=== PATIENT | male | born 1975 | race African-American/Black ===

== ENCOUNTER 2024-04-02 11:13 | Emergency (ER) | payer OTHER, SELFPAY ==
[2024-04-02 11:39] LABS: Basophils Absolute Auto 0.1 K/mm3 (0.0-0.1); Basophils Percent Auto 1.5 % (0.2-1.2); Eosinophils Absolute Auto 0.1 K/mm3 (0-0.3); Eosinophils Percent Auto 1.8 % (0-4.4); Hematocrit 49.2 % (42.0-52.0); Hemoglobin 14.2 g/dL (14.0-18.0); Immature Granulocyte Absolute 0.04 K/mm3 (0.00-0.031); Immature Granulocyte Percent A 1.2 % (0-0.5); Immature Platelet Fraction Pct 6.3 % (0.9-11.2); Lymphocytes Percent Auto 55.9 % (18.3-44.2); Mean Corpuscular HGB Conc 28.9 g/dl (32-36); Mean Corpuscular Hemoglobin 25.9 pg (26-34); Mean Corpuscular Volume 89.6 fl (80-100); Mean Platelet Volume 12.5 fl (7.4-10.4); Monocytes Absolute Auto 0.3 K/mm3 (0.1-0.6); Monocytes Percent Auto 7.9 % (2.6-8.5); Neutrophils Absolute Auto 1.1 K/mm3 (1.3-6.7); Neutrophils Percent Auto 31.7 % (45.5-73.1); Platelet Count Result 78 k/mm3 (150-375); Red Blood Count 5.49 M/mm3 (4.6-6.20); Red Cell Distribution Width 14.8 % (11.5-14.5); White Blood Count 3.4 K/mm3 (4.5-10.0)
[2024-04-02 11:49] LABS: INR 1.4
[2024-04-02 11:58] LABS: Alanine Aminotransferase 240 U/L (6-50); Albumin Level 4.2 g/dL (3.5-5.1); Alkaline Phosphatase 48 U/L (38-126); Anion Gap 22 mmol/L (4-12); Aspartate Amino Transferase 215 U/L (17-59); Bilirubin,Total 0.7 mg/dL (0.2-1.3); Blood Urea Nitrogen 10 mg/dL (9-20); Calcium 8.9 mg/dL (8.4-10.2); Carbon Dioxide 17 mmol/L (22-30); Chloride 105 mmol/L (98-107); Estimated Glomerular Filt Rate 56; Glucose 242 mg/dL (65-110); Potassium 4.3 mmol/L (3.4-5.0); Sodium 144 mmol/L (137-145)
[2024-04-02 12:09] LABS: Troponin I 0.014 ng/mL (0.000-0.034)
--- NOTE | 2024-04-02 12:11 | ED.CPR ---
HPI - CPR General Chief Complaint: Cardiac Arrest/CPR Stated Complaint: unresponsive Time Seen by Provider: 04/02/24 11:55 Source: EMS Mode of arrival: EMS Limitations: clinical condition History of Present Illness HPI narrative: 49-year-old was brought in by EMS in full cardiac arrest. As per the EMS patient had a seizure-like activity while he was sitting on the top bunk bed followed by a fall. Upon their arrival patient was unresponsive and had a pulse on the way to the ER patient went into cardiac arrest CPR was initiated was given 1 epi on route to the hospital. Patient upon arrival remained unresponsive and in asystole. ACLS protocol was followed Review of Systems Review of Systems: ROS unobtainable: Yes unobtainable due to medical condition Exam Narrative: GENERAL: Unresponsive HEAD: Normocephalic, atraumatic. EYES: pupils non reactive ENT: Nares clear, ET Tube in place NECK: Supple. CHEST: breath sounds heard with BVM HEART: asystole ABDOMEN: Soft . SKIN: Warm, dry, no rash. NEURO: Unresponsive Course Course Emergency Course: ACLS protocol was followed for details please look into the nurse's note. After several rounds of epi patient still remained asystole. Code called off at 11:30 a.m.. Vital Signs Vital signs: Vital Signs Oxygen Delivery Bag Valve Mask 04/02/24 11:16 Oxygen Delivery Bag Valve Mask 04/02/24 11:16 MDM - Cardiac Arrest/CPR Differential Diagnosis Differential diagnosis: Likely acute massive pulmonary embolism, acute myocardial infarction and sudden cardiac Lab Data 04/02/24 11:30 04/02/24 11:30 Labs: Lab Results 04/02/24 Range/Units 11:30 WBC Pending RBC Pending Hgb Pending Hct Pending MCV Pending MCH Pending MCHC Pending RDW Pending Plt Count Pending MPV Pending Immature Gran % (Auto) Pending Neut % (Auto) Pending Lymph % (Auto) Pending Liberty % (Auto) Pending Eos % (Auto) Pending Baso % (Auto) Pending Lymph # (Auto) Pending Liberty # (Auto) Pending Eos # (Auto) Pending Baso # (Auto) Pending Abs Immat Gran (auto) Pending Absolute Neuts (auto) Pending Absolute Nucleated RBC Pending Nucleated RBC % Pending PT 18.0 H (11.1-14.7) Seconds INR 1.4 Sodium 144 (137-145) mmol/L Potassium 4.3 (3.4-5.0) mmol/L Chloride 105 (98-107) mmol/L Carbon Dioxide 17 L (22-30) mmol/L Anion Gap 22 H (4-12) mmol/L BUN 10 (9-20) mg/dL Creatinine 1.60 H (0.7-1.3) mg/dL Estim Creat Clear Calc Not Reportable Estimated GFR 56 L (59 - ) Glucose 242 H (65-110) mg/dL Calcium 8.9 (8.4-10.2) mg/dL Total Bilirubin 0.7 (0.2-1.3) mg/dL AST 215 H (17-59) U/L ALT 240 H (6-50) U/L Alkaline Phosphatase 48 (38-126) U/L Troponin I 0.014 (0.000-0.034) ng/mL Total Protein 7.0 (6.3-8.2) g/dL Albumin 4.2 (3.5-5.1) g/dL Critical Care Time Critical Care Time Critical Care Time: Yes Total Critical Care Time: 45 Discharge Plan Discharge Clinical Impression: Cardiac arrest Patient Disposition: Condition: Follow-up/Referrals: UNKNOWN,DOCTOR [Primary Care Provider] - Time of Disposition: 12:24
--- NOTE | 2024-04-02 12:23 | PC.NURSE ---
Patient into ED via [facility], CPR was in process. code blue protocol initiated. patient moved to ED stretcher where IV placed HUB BORER was dislodged. DANIS device placed immediately. IO was placed simultaneously as 18 g in left forearm. CPR initiated at 1111 when patient became pulseless in ambulance. patient received 2 doses of narcan, one dose of epi 1116 pulse check noted no pulse, no spontaneous breaths, and PEA on the monitor 1120 1mg epi given 1124 1mg epi given no spontaneous breaths asystole on the monitor 1126 50 meQ sodium bicarb given 1127 1mg epi given 1128 no spontaneous breaths, no pulse, asystole on the monitor 1130 1 mg epi given 1130 no spontaneous breaths, no pulse, asystole on the monitor 1130 ressusitation efforts terminated, Dr Laguerre called time of 1130
[2024-04-02 12:25] LABS: Burr Cells 2+; Platelet Clumps Present; Platelet Estimate Slightly Decreased (Adequate); Schistocytes None Seen
== END 2024-04-02 13:25 | disposition expired ==
PROVIDERS: Emergency Provider Family Medicine
DX: I46.9 Cardiac arrest, cause unspecified (principal)
CPT/HCPCS: 36415; 80053; 84484; 85025; 85055; 85610; 92950; 96374; 99285; J0171; J7030